=== PATIENT | male | born 1930 | race Caucasian/White ===

== ENCOUNTER 2016-11-22 05:08 | Emergency (ER) | payer BC ==
[~2016-11-22] VITALS: Ht 172.7 cm; Wt 73.8 kg
[~2016-11-22 05:08] MED LIST: SIMV10TA2 PO; Triamterene PO; Vitamin D3 PO; WARF5TAB90 PO; WARF6TAB PO
[2016-11-22 05:13] VITALS: TEMP 36.6; Ht 172.7 cm; Wt 73.8 kg
[2016-11-22] MEDS ORDERED: SODIUM CHLORIDE 0.9% 1000ML 1,000 ML IV STA (05:17)
--- NOTE | 2016-11-22 05:17 | EMERGENCY ROOM VISIT NOTE ---
History Report prepared by Beatriz: Graham Antony Under the Supervision of: Dr. Fei Grey D.O. First contact with patient: 05:14 Chief Complaint: FLANK PAIN Stated Complaint: PAIN ON LOWER RIGHT SIDE History of Present Illness The patient is an 86 year old male who presents to the Emergency Room with complaints of constant, worsening right flank pain beginning last night. He currently rates his discomfort a 7/10. The patient states the he was getting ready to go to sleep and all of a sudden his right flank began to hurt. He reports that it is difficult to sleep because of his discomfort. The patient notes that he tried to vomit, but all he could do was dry heave. He denies dysuria. The patient reports that he does not have a history of back or kidney surgeries, or flank pain. He states that he takes Coumadin for blood clots. The patient notes that he has a history of a hernia rupture. Source of History: patient Onset: last night Position: other (right flank) Symptom Intensity: 7/10 Timing: constant, worsening Associated Symptoms: + vomiting (self-induced), No urinary symptoms Review of Systems See HPI for pertinent positives and negatives. A total of ten systems were reviewed and were otherwise negative. Family History No pertinent family history stated. Social History Smoking Status: Never Smoker Marital Status: Housing Status: lives with significant other Occupation Status: employed Current/Historical Medications Scheduled Atorvastatin (Lipitor), 10 MG PO DAILY Cholecalciferol (Vitamin D3), 1,000 INTER.UNIT PO DAILY Warfarin Sodium (Coumadin), 5 MG PO WK Warfarin Sodium (Coumadin), 6 MG PO 6XWK [Triamterene], 37.5 MG PO DAILY Allergies Coded Allergies: No Known Allergies (Verified , 11/22/16) Physical Exam Vital Signs Date Time Temp Pulse Resp B/P Pulse Ox O2 Delivery O2 Flow Rate FiO2 11/22/16 06:24 72 16 143/78 97 Room Air 11/22/16 05:59 69 16 134/69 96 Room Air 11/22/16 05:57 67 11/22/16 05:13 36.6 58 18 139/71 96 Room Air Physical Exam GENERAL: Awake, alert, well-appearing, in no distress HENT: Normocephalic, atraumatic. Oropharynx unremarkable. EYES: Normal conjunctiva. Sclera non-icteric. NECK: Supple. No nuchal rigidity. FROM. No JVD. RESPIRATORY: Clear to auscultation. CARDIAC: Regular rate, normal rhythm. Extremities warm and well perfused. Pulses equal. ABDOMEN: Soft, non-distended. No tenderness to palpation. No rebound or guarding. No masses. No abnormal aortic pulses or masses. BACK: Mild costovertebral angle tenderness on the right side. RECTAL: Deferred. MUSCULOSKELETAL: Chest examination reveals no tenderness. The back is symmetrical on inspection without obvious abnormality. There is no CVA tenderness to palpation. No joint edema. LOWER EXTREMITIES: Calves are equal size bilaterally and non-tender. No edema. No discoloration. NEURO: Normal sensorium. No sensory or motor deficits noted. SKIN: No rash or jaundice noted. Medical Decision & Procedures ER Provider Diagnostic Interpretation: Radiology results as stated below per my review and radiologist interpretation CT ABDOMEN & PELVIS Obstructing 2 mm stone distal right ureter 1 cm proximal to the UVJ causing mild upstream hydroureteronephrosis. Left kidney and collecting system are normal. Urinary bladder unremarkable. Status post cholecystectomy. Left fat-containing inguinal hernia. Penile prosthesis in place. Small hiatal hernia. Liver, gallbladder, spleen, pancreas, and adrenal glands demonstrate unremarkable unenhanced appearance. No evidence of bowel obstruction. Appendix is not visualized. No inflammatory changes are noted in the right lower quadrant nor involving the cecal base. Aortoiliac atherosclerosis without aneurysm. No acute osseous findings. 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 Radiologist: Sudha Magallanes M.D. Studt readt at 2589 and initial results transmitted at 0605. Laboratory Results 11/22/16 05:25 Red Blood Count 4.83, Mean Corpuscular Volume 91.3, Mean Corpuscular Hemoglobin 31.1, Mean Corpuscular Hemoglobin Concent 34.0, Mean Platelet Volume 9.4, Neutrophils (%) (Auto) 81.3, Lymphocytes (%) (Auto) 11.7, Monocytes (%) (Auto) 5.9, Eosinophils (%) (Auto) 0.7, Basophils (%) (Auto) 0.1, Neutrophils # (Auto) 8.03, Lymphocytes # (Auto) 1.15, Monocytes # (Auto) 0.58, Eosinophils # (Auto) 0.07, Basophils # (Auto) 0.01 11/22/16 05:25 Test 11/22/16 05:25 White Blood Count 9.87 K/uL (4.8-10.8) Red Blood Count 4.83 M/uL (4.7-6.1) Hemoglobin 15.0 g/dL (14.0-18.0) Hematocrit 44.1 % (42-52) Mean Corpuscular Volume 91.3 fL (80-100) Mean Corpuscular Hemoglobin 31.1 pg (25-34) Mean Corpuscular Hemoglobin Concent 34.0 g/dl (32-36) Platelet Count 209 K/uL (130-400) Mean Platelet Volume 9.4 fL (7.4-10.4) Neutrophils (%) (Auto) 81.3 % Lymphocytes (%) (Auto) 11.7 % Monocytes (%) (Auto) 5.9 % Eosinophils (%) (Auto) 0.7 % Basophils (%) (Auto) 0.1 % Neutrophils # (Auto) 8.03 K/uL (1.4-6.5) Lymphocytes # (Auto) 1.15 K/uL (1.2-3.4) Monocytes # (Auto) 0.58 K/uL (0.11-0.59) Eosinophils # (Auto) 0.07 K/uL (0-0.5) Basophils # (Auto) 0.01 K/uL (0-0.2) RDW Standard Deviation 44.3 fL (36.4-46.3) RDW Coefficient of Variation 13.3 % (11.5-14.5) Immature Granulocyte % (Auto) 0.3 % Immature Granulocyte # (Auto) 0.03 K/uL (0.00-0.02) Prothrombin Time 16.8 SECONDS (9.0-12.0) Prothromb Time International Ratio 1.5 (0.9-1.1) Urine Color DK YELLOW Urine Appearance CLOUDY (CLEAR) Urine pH 5.0 (4.5-7.5) Urine Specific [place] 1.026 (1.000-1.030) Urine Protein NEG (NEG) Urine Glucose (UA) NEG (NEG) Urine Ketones TRACE (NEG) Urine Occult Blood 3+ (NEG) Urine Nitrite NEG (NEG) Urine Bilirubin NEG (NEG) Urine Urobilinogen NEG (NEG) Urine Leukocyte Esterase NEG (NEG) Urine WBC (Auto) 1-5 /hpf (0-5) Urine RBC (Auto) >30 /hpf (0-4) Urine Hyaline Casts (Auto) 1-5 /lpf (0-5) Urine Epithelial Cells (Auto) 5-10 /lpf (0-5) Urine Bacteria (Auto) NEG (NEG) Anion Gap 4.0 mmol/L (3-11) Est Creatinine Clear Calc Drug Dose 33.2 ml/min Estimated GFR () 45.2 Estimated GFR (Non- 39.0 BUN/Creatinine Ratio 16.9 (10-20) Calcium Level 8.5 mg/dl (8.5-10.1) Laboratory results reviewed by me Medications Administered Medications (Trade) Dose Ordered Sig/Michelle Route Start Time Stop Time Status Last Admin Dose Admin Sodium Chloride (Nss 1000ml) 1,000 ml @ 999 mls/hr Q1H1M STAT IV 11/22/16 05:17 11/22/16 06:17 DC 11/22/16 05:36 999 MLS/HR Morphine Sulfate (MoRPHine SULFATE INJ) 4 mg NOW STAT IV 11/22/16 05:22 11/22/16 05:23 DC 11/22/16 05:34 4 MG Ondansetron HCl (Zofran Inj) 4 mg NOW STAT IV 11/22/16 05:22 11/22/16 05:23 DC 11/22/16 05:33 4 MG Hydromorphone HCl (Dilaudid Inj) 0.5 mg NOW STAT IV 11/22/16 06:02 11/22/16 06:03 DC 11/22/16 06:06 0.5 MG ED Course 0517: Ordered Sodium Chloride 1000 ml @ 999 mls/hr IV 0518: The patient was evaluated in room B10. A complete history and physical exam was performed. 0522: Ordered Zofran Inj 4mg IV, Morphine Sulfate 4mg IV 0602: Ordered Dilaudid Inj 0.5mg IV 0644: Ordered Acetaminophen/Hydrocodone Bitart 1 tab PO 0645: Ordered Flomax Cap 0.4mg PO 0646: I reevaluated the patient. He is resting and in no distress. Discussed results and discharge instructions: he verbalized understanding and agreement. He will follow-up with urology. The patient is ready for discharge. Medical Decision Musculoskeletal back pain, ureterolithiasis, pyelonephritis, constipation, abdominal aortic aneurysm. Medication Reconciliation: I attest that I have personally reviewed the patient' s current medication list. Blood pressure screening: Patient was found to have an elevated blood pressure and was referred to their primary doctor for recheck and further treatment. Impression Primary Impression: Renal colic Additional Impression: Ureterolithiasis Scribe Attestation The scribe's documentation has been prepared under my direction and personally reviewed by me in its entirety. I confirm that the note above accurately reflects all work, treatment, procedures, and medical decision making performed by me. Departure Information Dispostion Home / Self-Care Prescriptions Tamsulosin Hcl (FLOMAX) 0.4 Mg Cap 0.4 MG PO DAILY, #10 CAP Prov: Fei Grey, DO 11/22/16 Ondasetron Odt (ZOFRAN ODT) 4 Mg Tab 4 MG SL Q6H for Nausea, #6 TAB Prov: Fei Grey, DO 11/22/16 Hydrocodone/Acetaminophen 5MG/325MG ([place] 5MG/325MG) Tab 1 TABLET PO Q6H Y for Pain for 5 Days, #14 TAB Prov: Fei Grey, DO 11/22/16 Referrals Jg Qureshi M.D. (PCP) Angel Jaeger M.D. Patient Instructions My [facility] Problem Qualifiers
[2016-11-22] MEDS ORDERED: ONDANSETRON INJ 2 MG/ML 2 ML VIAL IV STA (05:22)
[2016-11-22] MEDS ORDERED: MoRPHine SULFATE 4 MG/ML 1 ML CARP\\VIAL IV STA (05:22)
[2016-11-22 05:37] LABS: BASO % 0.1 %; BASO ABS # 0.01 K/uL (0-0.2); COMPLETE YES; EOS % 0.7 %; HEMATOCRIT 44.1 % (42-52); IG% 0.3 %; LYMPH % 11.7 %; LYMPH ABS # 1.15 K/uL (1.2-3.4); MEAN CELL VOLUME 91.3 fL (80-100); MEAN CORPUSCULAR HEMOGLOBIN 31.1 pg (25-34); MEAN PLATELET VOLUME 9.4 fL (7.4-10.4); MONO % 5.9 %; NEUT % 81.3 %; PLATELET COUNT 209 K/uL (130-400); RED BLOOD COUNT 4.83 M/uL (4.7-6.1); WHITE BLOOD COUNT 9.87 K/uL (4.8-10.8)
[2016-11-22] MEDS ORDERED: CHOL1000 PO (05:37)
[2016-11-22] MEDS ORDERED: ATOR10TA82 PO (05:39)
[2016-11-22 05:46] LABS: INR 1.5 (0.9-1.1); PROTHROMBIN TIME (PATIENT) 16.8 SECONDS (9.0-12.0)
[2016-11-22 05:53] LABS: URINE APPEARANCE CLOUDY (CLEAR); URINE BILIRUBIN NEG (NEG); URINE COLOR DK YELLOW; URINE NITRITE NEG (NEG); URINE SPECIFIC GRAVITY 1.026 (1.000-1.030); UROBILINOGEN NEG (NEG)
[2016-11-22 05:54] LABS: BUN/CREATININE RATIO 16.9 (10-20); CALCIUM 8.5 mg/dl (8.5-10.1); CREATININE 1.6 mg/dl (0.60-1.40); POTASSIUM 3.8 mmol/L (3.5-5.1)
[2016-11-22] MEDS ORDERED: HYDROmorphone INJ 0.5 MG/0.5 ML SYR IV STA (06:02)
[2016-11-22 06:08] LABS: MANUAL MICROSCOPIC REQUIRED? NO; REVIEW REQ? NO
[2016-11-22] MEDS ORDERED: HYDROCODONE/ACETAMOPHEN 5/325MG TAB PO STA (06:44)
[2016-11-22] MEDS ORDERED: TAMSULOSIN HCL 0.4 MG CAP PO ONE (06:45)
[2016-11-22] MEDS ORDERED: ONDA4TAB10 SL (06:51)
[2016-11-22] MEDS ORDERED: TAMS0.4C38 PO (06:51)
[2016-11-22] MEDS ORDERED: HYDR-5688 PO (06:51)
[2016-11-22 07:14] VITALS: BP 110/69; PULSE 86; O2SAT 94
--- NOTE | 2016-11-22 07:41 | DIAGNOSTIC IMAGING REPORT ---
CT OF THE ABDOMEN AND PELVIS WITHOUT CONTRAST, STONE PROTOCOL CLINICAL HISTORY: Right flank pain. COMPARISON STUDY: None. TECHNIQUE: Helical axial images of the abdomen and pelvis were obtained without IV or oral contrast according to renal stone protocol. FINDINGS: A 2 mm distal right ureteral calculus shown on image [id number] of 441 results in mild right hydronephrosis. Multiple water attenuation bilateral renal lesions are suboptimally assessed on this unenhanced exam but likely reflect cysts. A few subcentimeter hypodense lesions are also suboptimally assessed and may reflect hyperdense cysts. Unenhanced images of the liver, spleen, adrenal glands and pancreas are normal. There is colonic diverticulosis without evidence for acute diverticulitis. The prostate is surgically absent. AP now pump is in place. A right hip arthroplasty is noted. There are no suspicious osseous lesions. There is no abdominal or pelvic lymphadenopathy. IMPRESSION: 1. 2 mm distal right ureteral calculus with results in mild right hydroureteronephrosis. 2. Colonic diverticulosis without evidence for acute diverticulitis. 3. Multiple bilateral renal lesions. These are suboptimally assessed on this unenhanced exam but favor simple and hyperdense cysts. Electronically signed by: Ramón Leonard M.D. 11/22/2016 7:39 AM Dictated Date/Time: 11/22/2016 7:34 AM
== END 2016-11-22 07:15 | disposition home or self-care (01) ==
LOC: C.EDB 05:10
DX: N23 Unspecified renal colic (principal); N20.1 Calculus of ureter; Z79.01 Long term (current) use of anticoagulants; Z79.899 Other long term (current) drug therapy; Z86.718 Personal history of other venous thrombosis and embolism